=== PATIENT | female | born 1985 | race Two or more races ===

== ENCOUNTER 2022-01-26 01:30 | Emergency (ER) | payer MEDICAID ==
[~2022-01-26] VITALS: Ht 165.1 cm; Wt 230.0 kg
[2022-01-26 03:12] LABS: Urine Bacteria NONE SEEN /hpf (None Seen); Urine Blood Negative /uL (Negative); Urine Mucus FEW (None Seen); Urine Specific Gravity 1.021 (1.001-1.035); Urine WBC 1 /hpf (0 - 5)
[2022-01-26] MEDS ORDERED: ONDANSETRON HCL 4 MG/2 ML VIAL IV ONE (04:45)
[2022-01-26] MEDS ORDERED: MECLIZINE HCL 25 MG TAB PO ONE (04:45)
[2022-01-26] MEDS ORDERED: ONDA-144 PO (05:09)
[2022-01-26] MEDS ORDERED: MECL25TA18 PO (05:09)
[2022-01-26 05:18] LABS: Basophils # (auto) 0.1 10 ^3/uL (0-0.2); Basophils % (auto) 0.7 % (0.0-2.0); Eosinophils # (auto) 0.1 10 ^3/uL (0-0.8); Eosinophils % (auto) 1.1 % (0.0-7.0); Hematocrit 42.9 % (36.0-46.0); Hemoglobin 14.2 g/dL (12.2-16.2); Lymphocytes # (auto) 1.8 10 ^3/uL (0.4-5.4); Lymphocytes % (auto) 16.8 % (10.0-50.0); Mean Corpuscular Hemoglobin 27.3 pg (28.0-32.0); Mean Corpuscular Hgb Conc. 33.1 g/dL (32.0-36.0); Mean Corpuscular Volume 82.5 fL (80.0-100.0); Monocytes # (auto) 0.3 10 ^3/uL (0-1.3); Monocytes % (auto) 2.8 % (0.0-12.0); Neutrophils # (auto) 8.2 10 ^3/uL (1.6-8.6); Neutrophils % (auto) 78.6 % (37.0-80.0); Red Blood Cells 5.21 10^6/uL (4.0-5.20); Red Cell Distribution Width 13.4 % (11.8-14.3); White Blood Cell 10.5 10^3/uL (4.4-10.8)
[2022-01-26 05:30] LABS: Calcium 9.2 mg/dL (8.5-10.1); Potassium 4.4 mmol/L (3.5-5.1)
[2022-01-26 05:33] LABS: Albumin 4.3 g/dL (3.4-5.0)
[2022-01-26 05:35] LABS: Bilirubin, Total 0.4 mg/dL (0.2-1.0); Total Protein 8.2 g/dL (6.4-8.2)
[2022-01-26 07:15] VITALS: BP 126/78
== END 2022-01-26 07:23 | disposition home or self-care (01) ==
LOC: ER 01:30
DX: R42 Dizziness and giddiness (principal)
CPT/HCPCS: 36415; 80053; 81001; 84702; 85025; 99283; J8597

== ENCOUNTER 2022-02-15 10:28 | Emergency (ER) | payer MEDICAID ==
[~2022-02-15] VITALS: Ht 165.1 cm; Wt 104.5 kg
[~2022-02-15 10:28] MED LIST: MECL25TA18 PO; ONDA-144 PO
[2022-02-15 12:30] VITALS: BP 146/87
[2022-02-15] MEDS ORDERED: HYDR50CA PO (13:25)
== END 2022-02-15 13:49 | disposition home or self-care (01) ==
LOC: ER 10:28
DX: F41.9 Anxiety disorder, unspecified (principal); Z76.0 Encounter for issue of repeat prescription
CPT/HCPCS: 81025

== ENCOUNTER 2022-05-30 18:31 | Emergency (ER) | payer SELFPAY ==
[~2022-05-30] VITALS: Ht 165.1 cm; Wt 108.0 kg
[~2022-05-30 18:31] MED LIST changes: +HYDR50CA PO
[2022-05-30 18:46] VITALS: BP 144/86
== END 2022-05-31 00:01 | disposition left against medical advice (07) ==
LOC: ER 18:31 → EDUNIT# 18:31 → ER 05-31 00:01
DX: M54.50 Low back pain, unspecified (principal); Z53.21 Procedure and treatment not carried out due to patient leaving prior to being seen by health care provider